=== PATIENT | male | born 1935 | race Caucasian/White ===

== ENCOUNTER 2023-07-16 07:34 | Outpatient (CLI) | payer BC, OTHER ==
[~2023-07-16 07:34] MED LIST: ALLO100T PO; CALC667T6 PO; DUTA0.5C40 PO; ESOM20CA PO; ESZO2TAB31 PO; FERR134T2 PO; FOLI1TAB34 PO; FURO80TA3 PO; MECO10005 PO; METO50TA7 PO; VIT1CAPS46 PO; ZINC50TA60 PO
[2023-07-16 08:08] LABS: ALBUMIN 3.2 G/DL (3.4-5.0); ANION GAP 5 (8-16); BLOOD UREA NITROGEN 23 MG/DL (7-18); CALCIUM 9.5 MG/DL (8.5-10.1); CHLORIDE 98 MMOL/L (99-107); CREATININE 5.71 MG/DL (0.60-1.10); GLUCOSE 96 MG/DL (70-104); SODIUM 138 MMOL/L (135-145); TOTAL CARBON DIOXIDE 34.7 MMOL/L (24-32); eGFR 9 ML/MIN
[2023-07-16] MEDS ORDERED: iohexol 350 MG/ML 50ML vial IV ONE (08:44)
[2023-07-16] MEDS ORDERED: iohexol 350MG/ML 100ml bottle IV ONE (08:44)
== END 2023-07-16 23:59 | disposition home or self-care (01) ==
LOC: RAD 07:34 → MERGE 08:00 → RAD 23:59
PROVIDERS: ATTEND Internal Medicine Interventional Cardiology
DX: J90 Pleural effusion, not elsewhere classified (principal); I51.7 Cardiomegaly; I70.0 Atherosclerosis of aorta; I12.9 Hypertensive chronic kidney disease with stage 1 through stage 4 chronic kidney disease, or unspecified chronic kidney disease; I70.213 Atherosclerosis of native arteries of extremities with intermittent claudication, bilateral legs; N28.1 Cyst of kidney, acquired; I35.0 Nonrheumatic aortic (valve) stenosis; N18.9 Chronic kidney disease, unspecified; K76.89 Other specified diseases of liver
CPT/HCPCS: 36415; 75635; 80048; J3490; Q9967